=== PATIENT | male | born 1950 | race Caucasian/White ===

== ENCOUNTER 2017-01-27 05:17 | Day surgery (SDC) | payer BC ==
[~2017-01-27 05:17] MED LIST: ABILIFY5 PO; ACTOS30 PO; ASAB PO; FLOMAX4 PO; GLUCPH PO; HYGROTON 25 MG25 MG PO; KLOR-CON 1010 MEQ PO; MULTI-VIT HP PO; NEUR300 PO; PROZAC40 MG PO; TRAZ100 PO; VITAMIN D31000 UNIT PO; ZOCOR20 PO
== END 2017-01-27 09:07 | disposition home or self-care (01) ==
LOC: SDC 05:17
PROVIDERS: Orthopaedic Surgery
PROC: 3E0S33Z Introduction of Anti-inflammatory into Epidural Space, Percutaneous Approach (ICD-10-PCS; 2017-01-27)
PROC: 3E0S3BZ Introduction of Anesthetic Agent into Epidural Space, Percutaneous Approach (ICD-10-PCS; principal; 2017-01-27 07:45)
DX: M54.16 Radiculopathy, lumbar region (principal); E11.40 Type 2 diabetes mellitus with diabetic neuropathy, unspecified; E78.00 Pure hypercholesterolemia, unspecified; I10 Essential (primary) hypertension; J44.9 Chronic obstructive pulmonary disease, unspecified; M19.90 Unspecified osteoarthritis, unspecified site; F41.9 Anxiety disorder, unspecified; F32.9 Major depressive disorder, single episode, unspecified; Z79.82 Long term (current) use of aspirin; Z79.899 Other long term (current) drug therapy; Z98.1 Arthrodesis status; Z98.890 Other specified postprocedural states
CPT/HCPCS: 82962; J2250; J3010; Q9967